=== PATIENT | male | born 1960 | race Caucasian/White ===

== ENCOUNTER 2020-03-13 13:01 | Emergency (ER) | payer MEDICARE, OTHER ==
--- NOTE | 2020-03-13 15:23 | EDM.PDOC ---
ED HPI GENERAL MEDICAL PROBLEM - General Chief Complaint: Skin Complaint Stated Complaint: DRIPPING FROM SURGERY SITE Time Seen by Provider: 03/13/20 13:20 Source of Information: Reports: Patient, Family, RN, RN Notes Reviewed History Limitations: Reports: No Limitations - History of Present Illness INITIAL COMMENTS - FREE TEXT/NARRATIVE: Pt had a spinal surgery at [facility] 10 days ago. Pt had a dural tear which required a blood patch. This seemed to improve his headache. Last night while in bed and prior to waking this morning he had a very large leak fro m the surgical site covering a large portion of the bed. He has a continual headache that does not change between sitting and lying down. Pt state he was up walking around yesterday without his walker and may have overdone it with the activity. He was able to come in of his own accord. The leak of the incision is creating greater concern than his headache at this time. 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) - Related Data Allergies Allergy/AdvReac Type Severity Reaction Status Date / Time ivp dye Allergy Shortness Uncoded 03/13/20 13:23 of Breath Home Meds: Home Meds Cyclobenzaprine [Flexeril] 10 mg PO TID PRN 03/13/20 [History] Gabapentin [Neurontin] 100 mg PO TID 03/13/20 [History] Labetalol [Normodyne] 200 mg PO BID 03/13/20 [History] Losartan/Hydrochlorothiazide [Losartan-HCTZ 100-12.5 MG] 1 tab PO DAILY 03/13/20 [History] amLODIPine [Norvasc] 5 mg PO DAILY 03/13/20 [History] atorvaSTATin [Lipitor] 40 mg PO BEDTIME 03/13/20 [History] buPROPion [buPROPion XL] 150 mg PO BID 03/13/20 [History] oxyCODONE 5 mg PO Q4H PRN 03/13/20 [History] Past Medical History Cardiovascular History: Reports: High Cholesterol, Hypertension Musculoskeletal History: Reports: Other (See Below) Other Musculoskeletal History: back injury Psychiatric History: Reports: Anxiety, Depression Endocrine/Metabolic History: Reports: Diabetes, Type II - Past Surgical History Cardiovascular Surgical History: Reports: None Musculoskeletal Surgical History: Reports: Other (See Below) Other Musculoskeletal Surgeries/Procedures:: back surgeries x6 Social & Family History - Tobacco Use Smoking Status *Q: Never Smoker - Alcohol Use Number of Drinks Per Day: 2 - Recreational Drug Use Recreational Drug Use: No ED ROS GENERAL - Review of Systems Review Of Systems: See Below Constitutional: Reports: No Symptoms HEENT: Reports: No Symptoms Respiratory: Reports: No Symptoms Cardiovascular: Reports: No Symptoms Endocrine: Reports: No Symptoms GI/Abdominal: Reports: No Symptoms : Reports: No Symptoms Musculoskeletal: Reports: No Symptoms Skin: Reports: Wound (weeping surgical incision). Denies: Erythema Neurological: Reports: No Symptoms Psychiatric: Reports: No Symptoms Hematologic/Lymphatic: Reports: No Symptoms Immunologic: Reports: No Symptoms ED EXAM, SKIN/RASH Exam: See Below Text/Narrative:: Pt without sxs of infection, no erythema, no swelling. Pt does have serosanguineous fluid draining from a point in top 1/3 of incision as well as a spot mid incision. Incision appears intact otherwise. Incision was covered with a padded antimicrobial dressing with was replaced after inspection of incision Exam Limited By: No Limitations General Appearance: Alert, Moderate Distress Neck: Normal Inspection, Supple, Non-Tender Respiratory/Chest: No Respiratory Distress, Lungs Clear, Normal Breath Sounds Cardiovascular: Normal Peripheral Pulses, Regular Rate, Rhythm, No Edema GI/Abdominal: Normal Bowel Sounds, Soft, Non-Tender, No Organomegaly Back Exam: Other (lumbar/sacral incision s/o sxs of infection noted). No: Full Range of Motion (limited do to recent surgery), Paraspinal Tenderness, Vertebral Tenderness Extremities: Normal Inspection, Normal Range of Motion Neurological: Alert, Oriented, CN II-XII Intact, Normal Cognition Psychiatric: Normal Affect, Normal Mood Skin: Warm, Wound/Incision (weeping lumbar/sacral incision w/o sxs of infection at incision site) Location, Skin: Back Characteristics: Linear (surgical) Associated features: Inflammation (slight), Weeping (serosanguinous). No: Swelling Lymphatic: No Adenopathy Course - Vital Signs Last Recorded V/S: Last Vital Signs Temp 36.9 C 03/13/20 13:28 Pulse 70 03/13/20 16:30 Resp 12 03/13/20 16:30 BP 134/62 03/13/20 16:30 Pulse Ox 96 03/13/20 16:30 - Orders/Labs/Meds Orders: Active Orders 24 hr Category Date Time Status CULTURE BODY FLUID + SMEAR [RM] Stat Lab 03/13/20 13:56 Results Labs: Laboratory Tests 03/13/20 Range/Units 13:56 Fluid Type Fluid pH 7 - Re-Assessments/Exams Free Text/Narrative Re-Assessment/Exam: 03/13/20 15:[address] [facility] - spoke with surgeon net developer contract via OR Nurse - Provider to return call Culture of weeping fluid PH of fluid - approximally a 7.0 - 8.0 on PH strip Glucose was noted to be a trace utilizing a urine dip stick with glucose measure. Free Text/Narrative Re-Assessment/Exam: 03/13/20 15:45 Discussion with pt, probable need of additional blood patch to stop leak from incision cite that is likely CSF versus wound drainage. Incision is intact except as noted two points of weeping fluid. Incision does not appear to be infected. No pain with palpation around the incision site. Pt does have significant headache that now is improved with laying down. Waiting for return call from [facility] - pt and are contemplating driving to them for further evaluation and procedure if needed. Pt was informed if a blood patch is necessary it can be provided here. After long discussion with pt has decided to have any treatment done with [facility] due to lengthy back history. 03/13/20 15:56 After further clarification and answering patients questions, pt is education to the requirements of a blood patch and has elected to have the procedure done here with the anesthesia department. Pt last had a meal at 11am but did just have a mint prior to provider entering room. Anesthesia was paged. 03/13/20 16:10 A conversation with the anesthesia department determined it would be better for patient to be seen with [facility] due to recent surgery. Additional page sent out to surgeon net developer contract from [facility]. Pt would like to be discharged and sent that way. Call to [facility] [phone] Limon. who has accepted the patient. Pt and will drive in private vehicle. Pt is in stable condition, vs are stable. If any changes in pt condition or concerns along the way pt is instructed to go to nearest er. 03/13/20 16:50 Dr Todd from [facility] returned the page. Pt will be going to [facility] versus [facility]. Pt will go to ER as directed and Dr Todd will notify the ER to expect the pt. Departure - Departure Time of Disposition: 17:18 Disposition: DC/Tfer to Other 70 Condition: Fair Clinical Impression: Postoperative CSF leak - Discharge Information *PRESCRIPTION DRUG MONITORING PROGRAM REVIEWED*: Not Applicable *COPY OF PRESCRIPTION DRUG MONITORING REPORT IN PATIENT TODD: Not Applicable Instructions: Cerebrospinal Fluid Leak, Adult Referrals: Yimi Dykes MD [Primary Care Provider] - Forms: ED Department Discharge Additional Instructions: Call to [facility] [place] - Dr. Limon in ER provided report on pt. Care Plan Goals: Pt and pt to travel to [facility] and check in at the ER unless provided update after departure. Sepsis Event Note (ED) - Evaluation Sepsis Screening Result: No Definite Risk - Focused Exam Vital Signs: Vital Signs Temp Pulse Resp BP Pulse Ox 03/13/20 16:30 70 12 134/62 96 03/13/20 15:34 72 12 133/68 98 03/13/20 14:30 71 12 136/72 96 03/13/20 13:28 36.9 C 73 18 150/57 H 97 03/13/20 13:24 36.9 C 73 18 150/57 H 97 - My Orders Last 24 Hours: My Active Orders 03/13/20 13:56 CULTURE BODY FLUID + SMEAR [RM] Stat - Assessment/Plan Last 24 Hours: My Active Orders 03/13/20 13:56 CULTURE BODY FLUID + SMEAR [RM] Stat Assessment:: CSF leak requiring blood patch. Plan: Pt to go to [facility] ER. Provider to provider report occurred at 1620 pm.
== END 2020-03-13 17:20 | disposition other institution (70) ==
LOC: JP.ED 13:01
DX: G97.82 Other postprocedural complications and disorders of nervous system (principal); G96.00 Cerebrospinal fluid leak, unspecified; I10 Essential (primary) hypertension; E78.00 Pure hypercholesterolemia, unspecified; F41.9 Anxiety disorder, unspecified; F32.9 Major depressive disorder, single episode, unspecified; E11.9 Type 2 diabetes mellitus without complications; Z91.041 Radiographic dye allergy status; Z79.899 Other long term (current) drug therapy
CPT/HCPCS: 83986; 87070; 87077; 87186; 87205; 99284